=== PATIENT | female | born 1975 | race Asian ===

== ENCOUNTER 2021-02-06 10:57 | Emergency (ER) | payer SELFPAY ==
[2021-02-06 11:05] VITALS: BP 141/86; PULSE 72; RESP 16; TEMP 36.6; O2SAT 100
--- NOTE | 2021-02-06 11:27 | ED.ABDPAIN ---
HPI - Abdominal Pain General Chief Complaint: Abdominal Pain Stated Complaint: lower abdominal Source: patient Mode of arrival: ambulatory Limitations: no limitations History of Present Illness HPI narrative: 45-year-old female presents to [facility] with complaints of 9 out of 10 lower abdominal pain for the past 4 days. Patient describes the pain as sharp. Patient reports hx of hysterectomy. Patient denies nauea, vomiting or diarrhea. Patient currently does not have a PCP. MD elicited complaint: abdominal pain Location: suprapubic Quality: sharp Exacerbating factors: nothing Relieving factors: nothing Associated symptoms: denies other symptoms Related Data Home Medications Medication Instructions Recorded Confirmed No Home Medications 02/06/21 02/06/21 Allergies Allergy/AdvReac Type Severity Reaction Status Date / Time No Known Allergies Allergy Verified 02/06/21 11:11 Review of Systems Constitutional: Constitutional: Denies chills, Denies fatigue, Denies fever(s) and Denies weakness ENT: Denies dysphagia, Denies dizziness, Denies epistaxis and Denies sore throat Cardiovascular: Cardiovascular: Denies chest pain, Denies rapid heart rate, Denies radiating jaw, neck or arm pain and Denies slow heart rate Respiratory: Respiratory: Denies chest congestion, Denies cough, Denies dyspnea and Denies wheezing Gastrointestinal: Gastrointestinal: Reports abdominal pain, Denies constipation, Denies diarrhea, Denies nausea and Denies vomiting Endocrine: Endocrine: Denies fatigue PMFSH Past Medical History Medical History (Updated 02/06/21 @ 11:34 by Ruby Santos APRN) Uterine fibroid Surgical History Surgical History (Updated 02/06/21 @ 11:30 by Ruby Santos APRN) H/O: hysterectomy Family History Family History (Updated 02/06/21 @ 11:30 by Ruby Santos APRN) Father Diabetes mellitus Mother Diabetes mellitus Social History Social History (Updated 02/06/21 @ 11:30 by Ruby Santos APRN) Smoking status: Never smoker Gender identity (if verbalized by the patient): Female Comments At time of signature, I agree with nursing past medical, surgical, social and family history. There is no relevant family history pertinent to the presenting complaint. Exam Const: General: no acute distress Nutritional Appearance: well nourished Orientation/consciousness: patient oriented x3 Neck: Neck: normal visual inspection Resp: Effort & Inspection: normal respiratory effort, not labored, not tachypneic and no use of accessory muscles Auscultation: clear to auscultation bilaterally, no rales and no wheezes Cardio: Rate: regular rate, not bradycardic and not tachycardic Rhythm: regular rhythm Heart sounds: no murmurs GI: Inspection: non-distended GI Palp: Yes Soft to palpation, Yes Tenderness to palpation present (GI) (Moderate tenderness noted to left lower quadrant and suprapubic region ), No Rigid due to palpation, No Hernia present and No Palpable mass present : General: Yes no CVA tenderness Back/Spine/Pelvis: Back: no CVA tenderness Skin: General skin exam: normal color Rashes: no rashes Neuro: General: patient oriented x3 and moves all extremities Speech: normal speech Psych: Affect: normal affect Attitude: cooperative Thought content: Yes Normal thought content present Course Vital Signs Vital signs: Vital Signs Temperature 36.6 C 02/06/21 11:05 Pulse Rate 72 02/06/21 11:05 Respiratory Rate 16 02/06/21 11:05 Blood Pressure 141/86 H 02/06/21 11:05 Pulse Oximetry 100 02/06/21 11:05 Temperature 36.6 C 02/06/21 11:05 Pulse Rate 72 02/06/21 11:05 Respiratory Rate 16 02/06/21 11:05 Blood Pressure 141/86 H 02/06/21 11:05 Pulse Oximetry 100 02/06/21 11:05 Transfer Transfered to: [facility] Transfer rationale: Abdominal pain -- patient will need labs, imaging and higher level of care Accepting physician: Dr Araujo MDM - Abdomina
== END 2021-02-06 11:43 | disposition home or self-care (01) ==
PROVIDERS: Emergency Provider Nurse Practitioner Family
DX: R10.30 Lower abdominal pain, unspecified (principal)
CPT/HCPCS: 81003; 99212; G0463

== ENCOUNTER 2021-02-06 12:00 | Observation (INO) | payer SELFPAY ==
[2021-02-06] VITALS (18 sets, daily range): BP systolic 49–154; BP diastolic 32–91; PULSE 63–83; RESP 18; TEMP 36.2–36.4; O2SAT 97–100; BMI 17.4
--- NOTE | ~2021-02-06 | CT_ITS ---
EXAMINATION: CT abdomen pelvis w con DATE: 02/06/2021 17:05 INDICATION: Lower abdominal pain for 3 days TECHNIQUE: Computed tomography (CT) of the abdomen and pelvis was performed with 100 cc Omnipaque 350 intravenous contrast. The dose-length product was 180.59 mGy-cm. Automated exposure control and iter ative reconstruction technique were employed. COMPARISON: None. FINDINGS: There are multiple bilateral pulmonary nodules, largest in the right middle lobe measuring 1.5 cm, compatible with metastatic disease. Heart size normal. No significant pleural or pericardial effusion. The liver, spleen, pancreas, adrenal glands and kidneys are unremarkable. Nonobstructive bowel gas pa ttern. There are multiple cystic lesions in the right adnexa, largest measuring 2 cm, possibly ovaria n were dilated fallopian tube. Nonobstructive bowel pattern. No significant vascular abnormality. Gal lbladder is present. No significant lymphadenopathy of the abdomen or pelvis. Uterus is mildly promin ent. IMPRESSION: 1. Multiple bilateral pulmonary nodules of the lung bases measuring up to 1.5 cm, compatible with met astatic disease. Correlate for history of malignancy. 2: Multiple irregular cystic lesions of the right adnexa measuring up to 2 cm, possibly follicular ch anges of the ovary versus hydro-/pyosalpinx. Reviewed, dictated and finalized at location A. IMPRESSION: 1. Multiple bilateral pulmonary nodules of the lung bases measuring up to 1.5 c m, compatible with metastatic disease. Correlate for history of malignancy. 2: Multiple irregular cystic lesions of the right adnexa measuring up to 2 cm, possibly follicular changes of the ovary versus hydro-/pyosalpinx.
--- NOTE | ~2021-02-06 | US_ITS ---
EXAMINATION: US pelvic complete w TV EXAM DATE: 02/07/2021 09:30 INDICATION: Uterine fibroids, abdominal pain . TECHNIQUE: Pelvic transabdominal and transvaginal sonogram was performed. There are multiple graysca le and Doppler images available for interpretation. Correlation is made to CT abdomen pelvis 02/06/2021 . FINDINGS: Uterus measures 8.9 x 5.0 cm, with mildly heterogeneous fundal region measuring about 2 cm , nonspecific region. Correlating with CT scan, there is a region about this size with slightly incr eased enhancement compared to other areas. Endometrial stripe measures 9 mm, within normal limits. T here are nabothian cysts. There is trace free pelvic fluid. Right adnexa: The ovary measures 5.4 x 2.5 x 3.0 cm, with lobular shape, a complex cystic thick chris d masslike lesion measuring 2.4 x 1.6 x 2.0 cm, another smaller one measuring 1.9 x 1.6 x 1.6 cm. Gracia earance most consistent with cystadenocarcinoma. No hypervascularity to suggest tubo-ovarian abscess. Ovarian vascular flow confirmed. Left adnexa: The ovary measures 3.4 x 2.2 x 2.0 cm and is morphologically normal. Ovarian vascular fl ow confirmed. IMPRESSION: 1. Complex cystic right ovarian mass(es), could be cystadenocarcinoma given the lung nodules. Other histology or tubo-ovarian abscess not excludable. 2. Left uterine fundal region, could be fibroid but indeterminate given other findings. Reviewed, dictated and finalized at location B. IMPRESSION: 1. Complex cystic right ovarian mass(es), could be cystadenocarcinoma given th e lung nodules. Other histology or tubo-ovarian abscess not excludable. 2. Left uterine fundal region, could be fibroid but indeterminate given other findings.
[2021-02-06 12:23] LABS: Basophils Absolute Auto 0.1 K/mm3 (0.0-0.1); Basophils Percent Auto 0.6 % (0.2-1.2); Eosinophils Absolute Auto 0.1 K/mm3 (0-0.3); Eosinophils Percent Auto 1.6 % (0-4.4); Hematocrit 38.2 % (37.0-47.0); Hemoglobin 12.3 g/dL (12.0-15.0); Immature Granulocyte Absolute 0.02 K/mm3 (0.00-0.031); Immature Granulocyte Percent A 0.3 % (0-0.5); Lymphocytes Absolute Auto 1.29 K/mm3 (0.9-3.2); Lymphocytes Percent Auto 16.3 % (18.3-44.2); Mean Corpuscular HGB Conc 32.2 g/dl (32-36); Mean Corpuscular Hemoglobin 27.9 pg (26-34); Mean Corpuscular Volume 86.6 fl (80-100); Mean Platelet Volume 8.7 fl (7.4-10.4); Monocytes Absolute Auto 0.6 K/mm3 (0.1-0.6); Monocytes Percent Auto 7.1 % (2.6-8.5); Neutrophils Absolute Auto 5.9 K/mm3 (1.3-6.7); Neutrophils Percent Auto 74.1 % (45.5-73.1); Platelet Count Result 236 k/mm3 (150-375); Red Blood Count 4.41 M/mm3 (4.2-5.4); Red Cell Distribution Width 13.7 % (11.5-14.5); White Blood Count 7.9 K/mm3 (4.5-10.0)
[2021-02-06 12:33] LABS: Alanine Aminotransferase 11 U/L (4-35); Albumin Level 4.5 g/dL (3.5-5.1); Alkaline Phosphatase 66 U/L (38-126); Anion Gap 10 mmol/L (8-16); Aspartate Amino Transferase 28 U/L (14-36); Bilirubin,Total 0.3 mg/dL (0.2-1.3); Blood Urea Nitrogen 10 mg/dL (7-17); Calcium 8.8 mg/dL (8.4-10.2); Carbon Dioxide 26 mmol/L (22-30); Chloride 102 mmol/L (98-107); Estimated CRCL calculation 95 ml/min; Estimated Glomerular Filt Rate > 60; Glucose 88 mg/dL (65-105); Lipase 30 U/L (23-300); Potassium 3.5 mmol/L (3.4-5.0); Sodium 138 mmol/L (137-145)
[2021-02-06 16:00] LABS: Add Urine Microscopic? YES; Appearance Urine Clear (Clear); Bilirubin Urine Negative (Negative); Blood Urine 1+ (Negative); Color Urine Yellow (Yellow); Glucose Urine UA Negative (Negative); Ketones Urine 1+ mg/dL (Negative); Leukocyte Esterase Ur Negative LEU/UL (Negative); Mucus Urine Heavy /lpf; Nitrate Urine Negative (Negative); Protein Urine 2+ mg/dL (Negative); Specific Grav Ur 1.025 (1.001-1.035); Squamous Epithelial Cell Urine Many /hpf (Few); Urobilinogen Urine Negative mg/dL (<2.0)
--- NOTE | 2021-02-06 16:12 | ED.ABDPAIN ---
HPI - Abdominal Pain General Chief Complaint: Abdominal Pain Stated Complaint: Abd Pain Time Seen by Provider: 02/06/21 15:26 Source: patient Mode of arrival: ambulatory Limitations: no limitations History of Present Illness HPI narrative: Patient is a 45-year-old female who presents complaining of lower abdominal pain. Patient was seen at urgent care and sent for further evaluation. Patient denies nausea, vomiting or diarrhea. She reports a history of hysterectomy. She denies increased pain with movement, denies urinary complaints. She denies taking rryu-kas-qukjzzu medications prior to arrival. Patient denies significant medical history. MD elicited complaint: abdominal pain Related Data Home Medications Medication Instructions Recorded Confirmed No Home Medications 02/06/21 02/06/21 Allergies Allergy/AdvReac Type Severity Reaction Status Date / Time No Known Allergies Allergy Verified 02/06/21 15:34 Review of Systems Review of Systems: Narrative: CONSTITUTIONAL: Denies fever, chills, or sweats. EYES: Denies visual changes, redness, or discharge. ENT: Denies rhinorrhea, congestion, sore throat, or otalgia. CARDIOVASCULAR: Denies chest pain, palpitations, or edema. RESPIRATORY: Denies cough or dyspnea. GASTROINTESTINAL: Reports abdominal pain, denies nausea, vomiting, or diarrhea. GENITOURINARY: Denies dysuria or hematuria. SKIN: Denies rash or itching. MUSCULOSKELETAL: Denies back pain, joint pain, or myalgia. NEUROLOGIC: Denies headache, numbness, dizziness, or weakness. PSYCHIATRIC: Denies anxiety or depression. [facility] Past Medical History Medical History Uterine fibroid Surgical History Surgical History H/O: hysterectomy Family History Family History Father Diabetes mellitus Mother Diabetes mellitus Social History Social History (Updated 02/06/21 @ 16:14 by RICKIE Melgoza) Smoking status: Never smoker Alcohol intake: current Alcohol use details: occasional Substance use: never Living arrangements: with family Gender identity (if verbalized by the patient): Female Comments At the time of signature, I have reviewed and agree with nursing past medical, surgical, social, and family history unless otherwise noted. Please see nursing chart for further information. There is no relevant family history pertinent to the presenting complaint. Exam Narrative: Exam Narrative: GENERAL: Well-appearing, well-nourished, and in no acute distress. HEAD: Normocephalic, atraumatic. EYES: EOMI. No redness or drainage. Conjunctiva are normal. ENT: Mucous membranes pink and moist. CHEST: No respiratory distress. Clear to auscultation. HEART: Regular rate and rhythm. No murmur appreciated. Normal peripheral pulses. GI: Soft, tenderness with palpation to lower abdomen, no rebound or guarding, no distention. Bowel sounds normal in all quadrants. MUSCULOSKELETAL: No bony tenderness. EXTREMITIES: Normal range of motion. SKIN: Warm, dry, no rash. NEURO: No focal deficits. Alert and oriented x3. Gait steady. PSYCH: Normal affect. No signs of depression or anxiety. Course Course Emergency Course: Discussed plan of care with Dr. Tenorio. UNIVERSITY COUNSELOR/PA Physician Supervision Dr. Tenorio Vital Signs Vital signs: Vital Signs Temperature 36.4 C L 02/06/21 12:11 Pulse Rate 83 02/06/21 12:11 Respiratory Rate 18 02/06/21 12:11 Blood Pressure 150/91 H 02/06/21 12:11 Pulse Oximetry 99 02/06/21 12:11 Temperature 36.3 C L 02/06/21 16:23 Pulse Rate 75 02/06/21 18:22 Respiratory Rate 18 02/06/21 15:15 Blood Pressure 136/82 02/06/21 18:00 Pulse Oximetry 100 02/06/21 18:17 Reviewed-patient is informed that they may have pre-hypertension or hypertension based on a blood pressure reading. I recommend the pa
--- NOTE | 2021-02-06 19:22 | ADMGEN ---
This patient, Gilberto Anne, was admitted to Medical Room 346-01. Patient/family oriented to hospital policies and general routines including ID bracelet, bed and alarms, visiting hours, pain management, procedures, bathroom and other care routines, personal items, smoking policy, room service/diet, and visiting hours. Information on how to activate the Rapid Response Team has been discussed. Patient/Family are encouraged to report perceived risks to care and to ask questions if they do not understand what they are told or what they should do.
[2021-02-06] MEDS: MORPHINE SULFATE (*CRX) 4 MG/ML INJ IV PUSH (19:32)
[2021-02-06] MEDS: ONDANSETRON INJ 4 MG/2 ML VIAL IV PUSH (19:32)
--- NOTE | 2021-02-06 20:03 | PM.IMHP ---
H&P: HPI History of Present Illness Date/Time: 02/06/21 20:03 Chief Complaint: Abdominal pain Narrative: 45-year-old female with past medical history of uterine fibroids with fibroid resection and benign lung nodules who presented to the ER with abdominal pain. The patient reports that she has been having bilateral lower quadrant abdominal pain is aching and cramping in nature for the last 4 days. She reports that the pain is in bilateral lower quadrants and radiates through to her low back. Pain is moderate to severe in intensity. She has been taking laxn-gdw-oogducg pain medications without relief in her symptoms. Her pain is now relieved after she received morphine IV. The pain is similar to when she had her prior uterine fibroids. She denies any nausea or vomiting. Her last menstrual cycle was 10 days ago. She reports that she has had multiple uterine fibroids removed in the past. She denies any hematochezia, melena or changes in bowel habits. She reports that she has had multiple uterine fibroids removed when she lived in [facility]. [place]. she denies any dysuria, hematuria, or changes in urinary frequency. She has not become established with a new physician since arrival. She denies any fevers or chills. She reports that her weight has been stable. She has a history of chronic lung nodules. She reports that the lung nodules were diagnosed in 2017. She has had a couple of biopsies on the lung nodules with benign findings. She still has CT scans every 6 months to follow-up on the lung nodules. She is a lifelong nonsmoker. she denies any cough, congestion, shortness of breath. She had her COVID vaccine September 2020. source of information: Patient report. The patient speaks broken Com[place]an but seems to have fair understanding of the [place] language. She denied Offer of manager storage services. Review of Systems Review of Systems: Narrative: 12 systems were reviewed with pertinent positives and negatives per HPI. Except as documented in the HPI, all other systems were reviewed and are negative. [facility] Past Medical History Medical History (Updated 02/06/21 @ 21:07 by Suzanna Lara DO) COVID-19 vaccine series completed (~09/2020) Uterine fibroid Surgical History Surgical History (Updated 02/06/21 @ 21:06 by Suzanna Lara DO) History of lung biopsy (~2018) Hx of breast implants, bilateral Family History Family History (Updated 02/06/21 @ 21:09 by Suzanna Lara DO) Father Diabetes mellitus Hypertension Mother Diabetes mellitus Uterine fibroid Grandparent Uterine cancer parental grandmother Uterine fibroid maternal grandmother Social History Social History (Updated 02/06/21 @ 21:10 by Suzanna Lara DO) Social History: She lives at home with her 16-year-old son and her of 18 years. She is a homemaker. They moved here from [facility] in July of 2020. She is a lifelong nonsmoker. She drinks about 2 bottles of champagne twice a week. She denies any illicit substance use. 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 Primary care physician: None Smoking status: Never smoker Alcohol intake: current Alcohol use details: occasional Substance use: never Living arrangements: with family Gender identity (if verbalized by the patient): Female Spiritual care concerns: No Meds Home Medications and Allergies Home Medications Medication Instructions Recorded Confirmed Type No Home Medications 02/06/21 02/06/21 History Allergies Allergy/AdvReac Type Severity Reaction Status Date / Time No Known Allergies Allergy Verified 02/06/21 19:43 Vital Signs Vital Signs - 24 hr 02/06/21 12:11 02/06/21 15:15 02/06/21 15:23 Temperature 97.5 F L Pulse Rate 83 68 Respiratory Rate 18 18 Blood Pressure 150/91 H 154/91 H Pulse Oximetry 99 100 100 02/06/21 15:46 02/06/21 15:4
[2021-02-07 05:31] VITALS: BP 134/88; PULSE 58; RESP 16; TEMP 36.3; O2SAT 100
[2021-02-07] MEDS: PANTOPRAZOLE 40 MG TABLET PO (10:43)
[2021-02-07 11:25] VITALS: BMI 17.4
--- NOTE | 2021-02-07 11:42 | PCNSR ---
On 02/07/21, the student, Ade Johnson, provided care and completed [facility] documentation on this patient. I have reviewed the student's documentation and agree with the findings.
[2021-02-07] MEDS: HYDROcodone/acetaminophen (*CRX) 5-325 MG TABLET 1 TAB PO (13:05)
[2021-02-07 14:00] VITALS: BP 121/76; PULSE 52; RESP 16; TEMP 35.9; O2SAT 100
--- NOTE | 2021-02-07 18:47 | PDONCCN ---
[facility] - Date of Consult Date/Time: 02/07/21 18:47 Requesting Physician: Rachel Martinez PA-C Primary Care Provider: ACCOUNT REPRESENTATIVE PHYSICIAN - Consult Narrative Reason for consult: Pulmonary nodules Narrative: Gilberto Anne is a 45 year old female from [facility] who moved from [facility] in July of 2019. Patient has a history of uterine fibroid tumor status post resection x3 in the last 1 was about 05/2018. Patient also has history of pulmonary nodules and had biopsy done twice in 2018 and 19 both came back negative for malignancy. Patient now came into the hospital with abdominal pain involving lower abdomen and both groin region. She denies any dysuria and hematuria. Denies any bleeding including melena hematochezia. She is feeling better after pain medication. She denies any weight loss. CT scan showed multiple bilateral pulmonary nodule measuring up to 1.5 cm as well as multiple irregular cystic lesion of the right adnexa measuring up to 2 cm. Pelvic ultrasound was also performed. Review of Systems - Review of Systems All systems reviewed & are unremarkable except as noted in [facility] and [facility] Medical History: Medical History (Last Updated 02/06/21 @ 21:07 by Suzanna Lara DO) COVID-19 vaccine series completed Onset Date: ~09/2020 Uterine fibroid Surgical History: Surgical History (Last Updated 02/06/21 @ 21:06 by Suzanna Lara DO) History of lung biopsy Onset Date: ~2017 Hx of breast implants, bilateral Family History: Family History (Last Updated 02/06/21 @ 21:09 by Suzanna Lara DO) Father Diabetes mellitus Hypertension Mother Diabetes mellitus Uterine fibroid Grandparent Uterine cancer parental grandmother Uterine fibroid maternal grandmother - Social History Social History: Social History (Last Updated 02/06/21 @ 21:10 by Suzanna Lara DO) Gender Identity: Gender identity (if verbalized by the patient): Female Alcohol Use: Alcohol intake: current Alcohol use details: occasional Substance Use: Substance use: never Others: Spiritual care concerns: No Living Arrangements: Living arrangements: with family Smoking Status: Smoking status: Never smoker Meds Home Medications Medication Instructions Recorded Confirmed Type No Home Medications 02/06/21 02/06/21 History hydrocodone-acetaminophen 1 tablet PO Q4H PRN #10 tablet 02/07/21 Rx Allergies Allergy/AdvReac Type Severity Reaction Status Date / Time No Known Allergies Allergy Verified 02/06/21 19:43 Results - Labs CBC & Chem 7: 02/06/21 12:15 02/06/21 12:15 Assessment and Plan - Additional Plan Multiple irregular cystic lesion of the right adnexa along with multiple bilateral pulmonary nodules. Patient is a 45-year-old pleasant female from [facility]. According to the patient she has his history of uterine fibroid and had resection done 3 times in the last 1 was in 2018. She also has bilateral pulmonary nodules and had twice biopsy done and that came back unremarkable. At this time I will order CA 125. I have instructed her to bring all her previous record to my office for review. If those pulmonary nodules are stable then we will continue to monitor without performing another biopsy. She has been recommended to follow up with supervisor pre wave for hysterectomy evaluation due to recurrent fibroid tumor. I have answered all the questions to patient's satisfaction. Exam - Vital Signs Vital Signs - 24 hr 02/06/21 19:32 02/06/21 21:28 02/07/21 05:31 Temperature 36.2 C L 36.3 C L Pulse Rate 63 58 L Respiratory Rate 18 16 Blood Pressure 140/81 134/88 Pulse Oximetry 100 99 100 02/07/21 14:00 Temperature 35.9 C L Pulse Rate 52 L Respiratory Rate 16 Blood Pressure 121/76 Pulse Oximetry 100 - Exam HEENT: EOMI, PERRLA, mucous membranes moist and pink, nares patent, sclera clear Neck: supple.
--- NOTE | 2021-02-08 08:17 | PM.DS ---
DS: Admitting Diagnosis Admitting Diagnosis Admitting Diagnosis: DATE OF SERVICE 02/07/21- DISCHARGED CC: Abdominal/Pelvic pain DS: Discharge Diagnosis Discharge Diagnosis (1) Abdominal pain: Qualifiers: Abdominal location: unspecified location Qualified Code(s): R10.9 - Unspecified abdominal pain Code(s): R10.9 - Unspecified abdominal pain Status: Acute Assessment and Plan: The patient is a 45-year-old female with past medical history of uterine fibroids with fibroid resection x4 and benign lung nodules which had been biopsied 2x in the past (per patient), who presented to the ER with increased bilateral lower quadrant abdominal pain is aching and cramping in nature for the last 4 days. Denies any abnormal uterine bleeding, change in her menstrual cycle, fever, chills, nausea, vomiting, or any other concerning symptoms. The patient just recently moved to [facility] from [facility] in July 2020. In [facility], she has been known to have uterine fibroids and had 4 thyroid resections, and benign lung nodules that she usually follows up with imaging every 6 months for. She reports not having any images done since Sep 2019 and she has not established any DOCKWORKER or Primary Care here since moving. initial vitals showed she was afebrile, non tachycardic, normal respiratory rate and 100% oxygen on room air, elevated blood pressure to 150/91. Initial labs showed normal CBC with differential, normal CMP, urinalysis showing 1+ blood, 3-5 RBCs, 4-6 wbc's, many squamous cells, showing a contamination. CT abdomen pelvis in the emergency room showed Multiple bilateral pulmonary nodules of the lung bases measuring up to 1.5 cm, compatible with metastatic disease. Correlate for history of malignancy. Multiple irregular cystic lesions of the right adnexa measuring up to 2 cm, possibly follicular changes of the ovary versus hydro-/pyosalpinx. she was admitted into the hospital for her pelvic pain and further evaluation with a pelvic ultrasound and and oncology consultation. Pelvic ultrasound showed Complex cystic right ovarian mass(es), could be cystadenocarcinoma given the lung nodules. Other histology or tubo-ovarian abscess not excludable. Left uterine fundal region, could be fibroid but indeterminate given other findings. I called the radiologist about these findings and informed him of her history. He recommended getting a CA 125 tumor marker and his new differential if NEGATIVE tumor marker for her findings include: right ovarian appearance could be postoperative hematoma/seroma, endometrioma, hemorrhagic cysts instead of cancer. explaining that she has no infection symptoms such as fever or leukocytosis so abscess would be less likely. He states due to her pulmonary nodules, if her tumor marker is positive he would be able to perform a percutaneous biopsy of 1 of her pulmonary nodules. He does recommend a six-month follow-up CT chest for further evaluation and monitoring of tumor marker is negative. The patient is feeling better. Her pain is better controlled with oral [place]. Her vitals have remained stable, afebrile, non tachycardic. she was seen by the oncologist Dr. Cross, who recommends following up as an outpatient and for her to bring all of her prior records from [facility] so he can further review them. Still pending CA 125 which will be followed up in Dr. Cross office in a week. He does recommend further evaluation by the DOCKWORKER, and I had called Dr. Khanna, for a possible hysterectomy due to recurrent fibroid tumors. The patient was discharged to continue [id number] medications, given a few Hebron medications for severe pain. Otherwise the follow-up with supervisor diagnostic Dr. Khanna, Dr. Cross, and the translational specialist primary care provider for further evaluation and workup. (2) Lung mass: Code(s): R91.8 - Other nonspecific abnormal finding of lung field Status: Acu
[2021-02-10 02:40] LABS: CA-125 31 U/mL (<35)
--- NOTE | 2021-02-13 08:25 | PC.NURSE ---
CA-125 WNL at 31. Results faxed to Dr. Cross.
== END 2021-02-07 18:37 | disposition home or self-care (01) ==
LOC: ANHED 18:39 → ANH3MED 19:05
PROVIDERS: Emergency Medicine; Admitting Provider Internal Medicine; Emergency Provider Nurse Practitioner; Visit Provider Physician Assistant
DX: R10.30 Lower abdominal pain, unspecified (principal); R91.8 Other nonspecific abnormal finding of lung field; R93.89 Abnormal findings on diagnostic imaging of other specified body structures; D25.9 Leiomyoma of uterus, unspecified; R19.09 Other intra-abdominal and pelvic swelling, mass and lump
CPT/HCPCS: 36415; 74177; 76830; 76856; 80053; 81001; 81025; 83690; 85025; 86304; 96374; 96375; 99285; A9270; G0378; G0379; J2270; J2405; Q9967

== ENCOUNTER 2024-12-27 14:57 | Emergency (ER) | payer BC, SELFPAY ==
[2024-12-27 15:22] VITALS: BP 127/85; PULSE 106; RESP 16; TEMP 36.3; O2SAT 100
--- NOTE | 2024-12-27 16:15 | ED_ITS ---
HPI - General Adult General Chief complaint: Abdominal Pain Stated complaint: ABD PAIN Time Seen by Provider: 12/27/24 16:05 Source: patient, RN notes reviewed and old records reviewed Mode of arrival: ambulatory Limitations: no limitations History of Present Illness HPI narrative: 49 year old female who presents to [facility] care with complaints of upper epigastric pain which started yesterday with no radiation of pain, denies any diaphoresis.. Patient reports that she has not had any change in her diet. Patient states that she had vomiting this morning none since about 1130 today, denies any blood noted in emesis or any bilious emesis, denies diarrhea reports normal BM yesterday MD complaint: upper epigastric pain non radiating Onset (ago): day(s) (started yesterday evening) Location: abdomen (epigastric) Radiation: non-radiation Severity: severe Quality: other (squeezing) Pain Consistency: colicky Treatments prior to arrival: none Related Data Allergies Allergy/AdvReac Type Severity Reaction Status Date / Time No Known Allergies Allergy Verified 12/27/24 15:21 Review of Systems Review of Systems: CONSTITUTIONAL: Denies fever, chills, or sweats. EYES: Denies visual changes, redness, or discharge. ENT: Denies rhinorrhea, congestion, sore throat, or otalgia. CARDIOVASCULAR: Denies chest pain, palpitations, or edema. RESPIRATORY: Denies cough or dyspnea. GASTROINTESTINAL: Upper epigastric pain abdominal pain,positive for nausea, vomiting, no diarrhea. GENITOURINARY: Denies dysuria or hematuria. SKIN: Denies rash or itching. MUSCULOSKELETAL: Denies back pain, joint pain, or myalgia. NEUROLOGIC: Denies headache, numbness, or weakness. PSYCHIATRIC: Denies anxiety or depression. All systems reviewed & are unremarkable except as noted in HPI and below PMFSH Past Medical History Medical History (Updated 12/29/24 @ 15:58 by Carlie Milian NP) COVID-19 vaccine series completed (~09/2020) Uterine fibroid Surgical History Surgical History (Updated 02/07/21 @ 18:51 by Juan Cross MD) History of lung biopsy (~2018) Hx of breast implants, bilateral Family History Family History (Updated 02/06/21 @ 21:09 by Suzanna Lara DO) Father Diabetes mellitus Hypertension Mother Diabetes mellitus Uterine fibroid Grandparent Uterine cancer parental grandmother Uterine fibroid maternal grandmother Social History Social History (Updated 02/06/21 @ 21:10 by Suzanna Lara DO) Social History: She lives at home with her 16-year-old son and her of 18 years. She is a homemaker. They moved here from [place] in July of 2020. She is a lifelong nonsmoker. She drinks about 2 bottles of champagne twice a week. She denies any illicit substance use. 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 Primary care physician: None Smoking status: Never smoker Alcohol intake: current Alcohol use details: occasional Substance use: never Living arrangements: with family Gender identity (if verbalized by the patient): Female Spiritual care concerns: No Comments At time of signature, agree with nursing past medical, surgical, social and family history. There is no relevant family history pertinent to the presenting complaint Exam Narrative: GENERAL: Well-appearing, well-nourished, and in no acute distress. HEAD: Normocephalic, atraumatic. EYES: PERRLA and EOMI. ENT: Nares clear, no rhinorrhea or epistaxis. Mucous membranes moist NECK: Supple. no lymphadenopathy CHEST: Clear to auscultation. No respiratory distress.SAO2 100% on room air HEART: Regular rate and rhythm. No murmur heard. Normal peripheral pulses. ABDOMEN: Soft, nontender to palpation, negative Nicole sign, nondistended, normal active bowel sounds, reports vomiting this am with no blood noted or any bilious emesis. no diarrhea. EXTREMITIES: Normal range of motion. No edema. SKIN: Warm, dry, no rash. NEURO: No focal deficits. Alert and oriented x3. Course Course Emergency Course: Patient is aware of diagnosis, understands and agrees to treatment plan.? Anticipatory guidance given.? Patient agrees to follow-up as directed and is aware of reasons to seek care at the emergency department. Portions of this record may have been created with voice recognition software Level of Care: Express Care Visit Vital Signs Vital signs: Vital Signs Temperature 36.3 C L 12/27/24 15:22 Pulse Rate 106 H 12/27/24 15:22 Respiratory Rate 16 12/27/24 15:22 Blood Pressure 127/85 12/27/24 15:22 Pulse Oximetry 100 12/27/24 15:22 Temperature 36.3 C L 12/27/24 15:22 Pulse Rate 106 H 12/27/24 15:22 Respiratory Rate 16 12/27/24 15:22 Blood Pressure 127/85 12/27/24 15:22 Pulse Oximetry 100 12/27/24 15:22 Reviewed Medical Decision Making MDM Narrative Medical decision making narrative: Exam findings and imaging show no acute concerns or changes; patient is non- toxic appearing and is in no distress.? Patient is appropriate for outpatient treatment and follow-up Differential Diagnosis Differential Diagnosis: epigastric discomfort, GERD, gastritis, nausea and vomiting Medical Records Medical records reviewed: Yes I reviewed the external patient's medical records. Vital Signs Vital Signs: Vital Signs Temperature 36.3 C L 12/27/24 15:22 Pulse Rate 106 H 12/27/24 15:22 Respiratory Rate 16 12/27/24 15:22 Blood Pressure 127/85 12/27/24 15:22 Pulse Oximetry 100 12/27/24 15:22 Temperature 36.3 C L 12/27/24 15:22 Pulse Rate 106 H 12/27/24 15:22 Respiratory Rate 16 12/27/24 15:22 Blood Pressure 127/85 12/27/24 15:22 Pulse Oximetry 100 12/27/24 15:22 reviewed Critical Care Time Critical Care Time Critical Care Time: No Discharge Plan Discharge Clinical Impression: Abdominal discomfort, epigastric Nausea and vomiting Qualifiers: Vomiting type: unspecified Qualified Code(s): R11.2 - Nausea with vomiting, unspecified Patient Disposition: Home Condition: Stable Instructions: Diet for Stomach Ulcers and Gastritis (ED), GERD (Gastroesophageal Reflux Disease) (DC) Additional Instructions: Clear liquids for the next 8-10 hours, then advance to a bland diet as tolerated A bland diet can consist of--BRAT diet which is bananas, rice, applesauce, and toast Avoid fried, greasy, fatty, fried foods Avoid caffeine, nicotine, and alcohol Return to your regular diet in the next 3-4 days Medication as directed for nausea and vomiting Sometimes ibuprofen/Aleve can cause increased stomach upset [id number] Imodium if develop diarrhea Follow-up with her PCP if continued problems or uncontrolled pain Tylenol only for discomfort Protonix daily If your symptoms persist, change or worsen significantly before you can contact your personal physician then please, without delay, go to the emergency department for further evaluation. Follow-up with PCP in 7-10 days or sooner if needed Follow up with PCP soon in regards to your blood pressure which is elevated above threshold for referral. Blood pressure above 120/80 may indicate pre- hypertension.127/85 Patient Language: Citizen Of [place] Prescriptions: New pantoprazole [Protonix] 40 mg tablet,delayed release (DR/EC) 40 mg PO HS 28 Days Qty: 28 0RF ondansetron 4 mg tablet,disintegrating 4 mg PO Q6H PRN (Reason: nausea and vomiting) Qty: 14 0RF Rx Instructions: for nausea and vomiting No Action hydrocodone-acetaminophen 5-325 mg Tablet 1 tablet PO Q4H PRN (Reason: Pain ) Qty: 10 0RF Follow-up/Referrals: PHYSICIAN,DIRECTOR OF PUBLIC SAFETY [Primary Care Provider] - Time of Disposition: 16:23 Quality [place] Coma Scale Eyes: Open Verbal: Oriented and Alert Motor: Follows Commands [place] Coma Total Score: 15
== END 2024-12-27 16:25 | disposition home or self-care (01) ==
PROVIDERS: Emergency Provider Registered Nurse
DX: R10.13 Epigastric pain (principal); R11.2 Nausea with vomiting, unspecified
CPT/HCPCS: 99213; G0463